=== PATIENT | female | born 1990 | race Caucasian/White ===

== ENCOUNTER 2017-12-28 14:34 | Emergency (ER) | payer OTHER ==
[~2017-12-28] VITALS: Ht 170.2 cm; Wt 90.9 kg
[2017-12-28] MEDS ORDERED: ALBU8HFA IH (14:49)
[2017-12-28] MEDS ORDERED: AUD NEB (14:49)
[2017-12-28] MEDS ORDERED: IPRATROPIUM BROMIDE 0.5 MG/2.5 ML NEB SOLUTION NEB ONE (15:00)
[2017-12-28] MEDS ORDERED: ALBUTEROL SULFATE 5 MG/ML 20 ML NEB SOLN [BULK] NEB ONE (15:00)
[2017-12-28 17:07] VITALS: BP 128/71
== END 2017-12-28 17:19 | disposition home or self-care (01) ==
LOC: EMS 14:46
DX: J45.901 Unspecified asthma with (acute) exacerbation (principal)
CPT/HCPCS: 81025; 94644; 99285; J7611